=== PATIENT | female | born 1945 ===

== ENCOUNTER 2020-03-30 07:45 | Inpatient (IN) ==
[~2020-03-30 07:45] MED LIST: Buffered Lidocaine 1% SYRIN 1 ml INTRADERM ONE; Lactated Ringers 1000 ml BAG 1,000 ML IV SCH; ROPIVACAINE 5 MG/ML 30 ML BTL (0.5%) ONE
[2020-03-30] MEDS ORDERED: ceFAZolin 2 GM PREMIX 2 GM/50 ML BAG ONE (08:06)
[2020-03-30] MEDS ORDERED: Buffered Lidocaine 1% SYRIN 1 ml INTRADERM ONE (08:06)
[2020-03-30] MEDS ORDERED: Lidocaine 2% PF 5 ML VIAL ONE (08:32)
[2020-03-30] MEDS ORDERED: ROPIVACAINE 5 MG/ML 30 ML BTL (0.5%) ONE (08:32)
[2020-03-30] MEDS ORDERED: fentaNYL 100 mcg/2 ml 50 MCG/ML VIAL ONE (08:38)
[2020-03-30] MEDS ORDERED: Midazolam 2 mg/2 ml VIAL 1 mg/ml 2 ml VIAL (2 mg) ONE (08:38)
[2020-03-30] MEDS ORDERED: Bupivacaine 0.5% SDV PF 30ML VIAL ONE (08:58)
[2020-03-30] MEDS ORDERED: HYDROmorphone 1 MG/1 ML SYRINGE IV PRN (09:41)
[2020-03-30] MEDS ORDERED: Ondansetron 4 mg VIAL 2 MG/ML 2 ml VIAL IV PRN ×2 (09:41→10:20)
[2020-03-30] MEDS ORDERED: fentaNYL 100 mcg/2 ml 50 MCG/ML VIAL IV PRN (09:41)
[2020-03-30] MEDS ORDERED: Naloxone 0.4 mg VIAL 0.4 mg/ml 1 ml VIAL IV PRN (09:41)
[2020-03-30] MEDS ORDERED: diPHENhydraMINE IV 50 MG/ML 1 ml VIAL (BENADRYL) IV PRN (10:20)
[2020-03-30] MEDS ORDERED: Lactulose 30 ml UDC PO PRN (10:20)
[2020-03-30] MEDS ORDERED: Ondansetron ODT 4 mg TAB 4 MG TAB PO PRN (10:20)
[2020-03-30] MEDS ORDERED: Morphine 2 MG/ML SYRINGE IV PRN (10:20)
[2020-03-30] MEDS ORDERED: diPHENhydraMINE 25 mg TAB PO PRN (10:20)
[2020-03-30] MEDS ORDERED: Magnesium Hydroxide LIQ 30 ML UDC PO PRN (10:20)
[2020-03-30] MEDS ORDERED: Potassium Chlor 20 meq TAB.ER PO PRN (10:24)
[2020-03-30] MEDS ORDERED: Ondansetron 4 mg VIAL 2 MG/ML 2 ml VIAL ONE (10:48)
[2020-03-30] MEDS ORDERED: ceFAZolin VIAL VIAL ONE (10:48)
[2020-03-30] MEDS ORDERED: EPHEDrine (Pressors) 50 MG/ML VIAL ONE (10:48)
[2020-03-30] MEDS: Lactated Ringers 1000 ml BAG 1,000 ML IV SCH ×2 (13:21→23:22)
[2020-03-30] MEDS: oxyCODONE/Acetamin 5/325 mg TAB PO PRN ×2 (17:10→22:19)
[2020-03-30] MEDS: ceFAZolin 1 GM ADVAN 1 GM in NS 0.9% 50 ML 50 ML IVPB SCH (17:10)
[2020-03-30] MEDS: Magnesium Hydroxide LIQ 30 ML UDC PO SCH (20:29)
[2020-03-31] MEDS: ceFAZolin 1 GM ADVAN 1 GM in NS 0.9% 50 ML 50 ML IVPB SCH ×2 (01:23→09:40)
[2020-03-31 04:53] LABS: Hematocrit 31 % (35-47); Hemoglobin 10.8 g/dL (12.0-16.0); Mean Platelet Volume 8.6 fL (7.4-10.4); Platelet Count 187 10^3/uL (150-450)
[2020-03-31 05:07] LABS: EGFR African American 61.8 (>60); EGFR Non-African American 51.1 (>60); Potassium 3.7 mmol/L (3.5-5.0)
[2020-03-31] MEDS: oxyCODONE/Acetamin 5/325 mg TAB PO PRN ×2 (05:30→13:03)
[2020-03-31] MEDS: Magnesium Hydroxide LIQ 30 ML UDC PO SCH ×2 (08:05→22:12)
[2020-03-31] MEDS: Vitamin THERAPEUTIC TAB PO SCH (08:12)
[2020-04-01 04:48] LABS: Hematocrit 28 % (35-47); Hemoglobin 9.8 g/dL (12.0-16.0); Mean Platelet Volume 8.4 fL (7.4-10.4); Platelet Count 114 10^3/uL (150-450)
[2020-04-01] MEDS: Magnesium Hydroxide LIQ 30 ML UDC PO SCH ×2 (09:41→21:31)
[2020-04-01] MEDS: Vitamin THERAPEUTIC TAB PO SCH (09:45)
[2020-04-02 05:50] LABS: Hematocrit 26 % (35-47); Hemoglobin 9.1 g/dL (12.0-16.0)
[2020-04-02 06:31] LABS: Mean Platelet Volume 9.2 fL (7.4-10.4); Platelet Count 163 10^3/uL (150-450)
[2020-04-02] MEDS: Vitamin THERAPEUTIC TAB PO SCH (08:35)
[2020-04-03] MEDS: oxyCODONE/Acetamin 5/325 mg TAB PO PRN (00:29)
[2020-04-03 08:16] LABS: Hematocrit 28 % (35-47); Mean Platelet Volume 7.9 fL (7.4-10.4); Platelet Count 238 10^3/uL (150-450)
[2020-04-03 08:29] VITALS: BP 129/52
[2020-04-03] MEDS: Vitamin THERAPEUTIC TAB PO SCH (08:55)
== END 2020-04-03 11:25 | DRG 470 ==
LOC: INTOOBSV 07:45 → AA 07:45 → SSU 10:20
PROVIDERS: ADMIT Orthopaedic Surgery Adult Reconstructive Orthopaedic Surgery; ATTEND Orthopaedic Surgery Adult Reconstructive Orthopaedic Surgery

== ENCOUNTER 2022-06-04 11:47 | Observation (INO) ==
[~2022-06-04 11:47] MED LIST changes: -ROPIVACAINE 5 MG/ML 30 ML BTL (0.5%) ONE
[2022-06-04] MEDS ORDERED: ceFAZolin 2 GM PREMIX 2 GM/50 ML BAG ONE (12:34)
[2022-06-04] MEDS ORDERED: ROPIVACAINE 5 MG/ML 30 ML BTL (0.5%) ONE ×2 (13:53→14:23)
[2022-06-04] MEDS ORDERED: Midazolam 5 mg/5 ml VIAL 1 mg/ml 5 ml VIAL (5 mg) ONE (13:53)
[2022-06-04] MEDS ORDERED: Lidocaine 2% PF 5 ML VIAL ONE ×2 (13:53→14:32)
[2022-06-04] MEDS ORDERED: fentaNYL 100 mcg/2 ml 50 MCG/ML VIAL ONE ×3 (13:53→18:03)
[2022-06-04] MEDS ORDERED: Ondansetron 4 mg VIAL 2 MG/ML 2 ml VIAL ONE (14:32)
[2022-06-04] MEDS ORDERED: Rocuronium 50 mg VIAL 10 mg/ml 5 ml VIAL (50 mg) ONE (14:32)
[2022-06-04] MEDS ORDERED: Propofol 10 MG/ML 20 ML BTL ONE (14:32)
[2022-06-04] MEDS ORDERED: Dexamethasone IV 4 MG/ML VIAL 1 ml VIAL ONE (14:32)
[2022-06-04] MEDS ORDERED: Acetaminophen IV 1 GM/100ML 1,000 MG/100 ML BAG IV ONE (15:31)
[2022-06-04] MEDS ORDERED: Glycopyrrolate IV 0.2 MG/ML 1 ML VIAL ONE (15:37)
[2022-06-04] MEDS ORDERED: Lactulose 30 ml UDC PO PRN (15:55)
[2022-06-04] MEDS ORDERED: Magnesium Hydroxide LIQ 30 ML UDC PO PRN (15:55)
[2022-06-04] MEDS ORDERED: Ondansetron ODT 4 mg TAB 4 MG TAB PO PRN (15:55)
[2022-06-04] MEDS ORDERED: Morphine 2 MG/ML SYRINGE IV PRN (15:55)
[2022-06-04] MEDS ORDERED: Ondansetron 4 mg VIAL 2 MG/ML 2 ml VIAL IV PRN ×2 (15:55→16:49)
[2022-06-04] MEDS ORDERED: Lactated Ringers 1000 ml BAG 1,000 ML IV SCH (16:00)
[2022-06-04] MEDS ORDERED: HYDROmorphone 0.5 MG/0.5 ML SYRINGE ONE (16:07)
[2022-06-04] MEDS ORDERED: Naloxone 0.4 mg VIAL 0.4 mg/ml 1 ml VIAL IV PRN (16:49)
[2022-06-04] MEDS ORDERED: fentaNYL 100 mcg/2 ml 50 MCG/ML VIAL IV PRN (16:49)
[2022-06-04] MEDS: Magnesium Hydroxide LIQ 30 ML UDC PO SCH (21:28)
[2022-06-04] MEDS: ceFAZolin 1 GM ADVAN 1 GM in NS 0.9% 50 ML 50 ML IVPB SCH (22:40)
[2022-06-05 07:49] LABS: Hematocrit 31 % (35-47); Hemoglobin 10.7 g/dL (12.0-16.0); Mean Platelet Volume 8.2 fL (7.4-10.4); Platelet Count 236 10^3/uL (150-450)
[2022-06-05] MEDS: Magnesium Hydroxide LIQ 30 ML UDC PO SCH ×2 (08:20→19:49)
[2022-06-05] MEDS: Vitamin THERAPEUTIC TAB PO SCH (08:20)
[2022-06-05 08:26] LABS: Calcium 8.7 mg/dL (8.6-10.3); Potassium 4.7 mmol/L (3.5-5.0); eGFR CKD-EPI 36.6 (>60)
[2022-06-05] MEDS: ceFAZolin 1 GM ADVAN 1 GM in NS 0.9% 50 ML 50 ML IVPB SCH ×2 (08:32→16:34)
[2022-06-06 06:33] LABS: Hematocrit 31 % (35-47); Hemoglobin 10.4 g/dL (12.0-16.0); Mean Platelet Volume 8.4 fL (7.4-10.4); Platelet Count 230 10^3/uL (150-450)
[2022-06-06] MEDS: Vitamin THERAPEUTIC TAB PO SCH (09:29)
[2022-06-06] MEDS: Magnesium Hydroxide LIQ 30 ML UDC PO SCH (09:30)
[2022-06-06 12:05] LABS: Calcium 8.2 mg/dL (8.6-10.3); Potassium 4.7 mmol/L (3.5-5.0); eGFR CKD-EPI 32.3 (>60)
[2022-06-06 12:44] VITALS: BP 140/63
== END 2022-06-06 14:10 ==
LOC: AA 11:47 → INTOOBSV 11:47 → SSU 19:39
PROVIDERS: ADMIT Orthopaedic Surgery Adult Reconstructive Orthopaedic Surgery; ATTEND Orthopaedic Surgery Adult Reconstructive Orthopaedic Surgery